=== PATIENT | male | born 1980 | race Hispanic/Latino ===

== ENCOUNTER 2018-03-13 10:00 | Emergency (ER) | payer OTHER ==
[2018-03-13 12:27] LABS: Urine Bacteria NONE SEEN /HPF (NONE SEEN); Urine Culture Reflex Order NOT NEEDED; Urine RBC <5 /HPF (NONE SEEN)
[2018-03-13 12:28] LABS: Urine Blood TRACE (NEG); Urine Glucose NEGATIVE (NEG); Urine Protein NEGATIVE (NEG)
--- NOTE | 2018-03-13 12:53 | ER ---
Nurse's Notes [facility] Name: Bradley Steve Age: 37 yrs Sex: Male : 1980 Arrival Date: 03/13/2018 Time: 10:03 Bed 20 Private MD: None, None Diagnosis: Epididymitis-Left Presentation: 03/13 10:11 Presenting complaint: Patient states: "I run a lot, I went to the gym, I was running hb pretty hard on the treadmill. Now my left testicle is bigger than its ever been and everything feels tight, numb, and somewhat heavy" Reports symptoms have been going on for the past 2 days. Transition of care: patient was not received from another setting of care. Onset of symptoms was March 11, 2018. Risk Assessment: Do you want to hurt yourself or someone else? Patient reports no desire to harm self or others. Initial Sepsis Screen: Does the patient meet any 2 criteria? No. Patient's initial sepsis screen is negative. Does the patient have a suspected source of infection? No. Patient's initial sepsis screen is negative. Care prior to arrival: None. 10:11 Method Of Arrival: Ambulatory hb 10:11 Acuity: ERICKA 2 hb Triage Assessment: 10:13 General: Appears in no apparent distress. comfortable, Behavior is calm, cooperative, hb appropriate for age. Pain: Complains of pain in pelvis. Pain: Pain currently is 2 out of 10 on a pain scale. Neuro: Level of Consciousness is awake, alert, obeys commands. Cardiovascular: Patient's skin is warm and dry. Respiratory: Airway is patent Respiratory effort is even, unlabored, Respiratory pattern is regular, symmetrical. Historical: - Allergies: 10:13 No Known Allergies; hb - Home Meds: 10:13 None [Active]; hb - PMHx: 10:13 None; hb - PSHx: 10:13 Appendectomy; hb - Immunization history:: Flu vaccine is not up to date. - Social history:: Smoking status: Patient/guardian denies using tobacco. - Ebola Screening: : Patient denies travel to an Ebola-affected area in the 21 days before illness onset. Screenin:50 Abuse screen: Denies threats or abuse. Nutritional screening: No deficits noted. em Tuberculosis screening: No symptoms or risk factors identified. Fall Risk None identified. Assessment: 11:50 General: Appears in no apparent distress. comfortable, Behavior is calm, cooperative. em Pain: Complains of pain in pelvis Quality of pain is described as tight and pressure. Neuro: Level of Consciousness is awake, alert, obeys commands, Oriented to person, place, time, situation, Gait is steady. Cardiovascular: Capillary refill < 3 seconds Patient's skin is warm and dry. Respiratory: Airway is patent Respiratory effort is even, unlabored, Respiratory pattern is regular, symmetrical. GI: Abdomen is flat, Patient currently denies nausea, vomiting. : Urine is clear, Genitalia appear normal on penis on scrotum Reports left testicle feels tight and feels like pressure, denies pain. EENT: No signs and/or symptoms were reported regarding the EENT system. Derm: Skin is intact, is healthy with good turgor, Skin is pink, warm \\T\\ dry. Musculoskeletal: Range of motion: intact in all extremities. 12:00 Reassessment: I agree with previous assessment. hb 13:08 Reassessment: Patient appears in no apparent distress at this time. Patient and/or em family updated on plan of care and expected duration. Pain level reassessed. Patient is alert, oriented x 3, equal unlabored respirations, skin warm/dry/pink. Vital Signs: 10:13 BP 150 / 98; Pulse 66; Resp 18; Temp 98.1; Pulse Ox 98% on R/A; Weight 102.06 kg (R); hb Height 5 ft. 7 in. (170.18 cm) (R); Pain 2/10; 13:09 BP 147 / 87; Pulse 71; Resp 19; Pulse Ox 99% on R/A; Pain 0/10; em 10:13 Body Mass Index 35.24 (102.06 kg, 170.18 cm) hb ED Course: 10:03 Patient arrived in ED. sb2 10:04 None, None is Private Physician. sb2 10:12 Triage completed. hb 10:13 Arm band placed on Patient placed in waiting room, Patient notified of wait time. hb 11:37 Ultrasound completed. Other: pt ambulated to /from u/s room to er waiting , no issues . sg3 . 11:41 Krish Almanzar PA is PHCP. cp 11:41 Krish Rios MD is Attending Physician. cp 11:43 Jayson Contreras LVN is Primary Nurse. em 11:50 Patient has correct armband on for positive identification. Placed in gown. Bed in low em position. Call light in reach. 12:06 US Scrotum Testicles In Process Unspecified. EDMS 12:51 Jason Hurst MD is Referral Physician. cp 13:48 No provider procedures requiring assistance completed. Patient did not have IV access em during this emergency room visit. 14:28 Scrotum Testicles In Process Unspecified. EDMS Administered Medications: 13:08 Drug: Rocephin (cefTRIAXone) 250 mg Route: IM; Site: left deltoid; em 13:48 Follow up: Response: No adverse reaction em 13:08 Drug: Zithromax 1 grams Route: PO; em 13:48 Follow up: Response: No adverse reaction em Outcome: 12:52 Discharge ordered by MD. cp 13:48 Discharged to home ambulatory. em 13:48 Condition: good 13:48 Discharge instructions given to patient, Instructed on discharge instructions, follow up and referral plans. medication usage, Demonstrated understanding of instructions, follow-up care, medications, Prescriptions given X 2. 13:49 Patient left the ED. em Signatures: Dispatcher [employer] EDMS Jayson Contreras LVN LVN em Krish Almanzar PA PA cp Maday Hampton, JOSHUA RN Karen Ramirez sg3 Judit Coleman sb2
--- NOTE | 2018-03-13 12:53 | EDPHYS ---
Physician Documentation [facility] Name: Bradley Steve Age: 37 yrs Sex: Male : 1980 Arrival Date: 03/13/2018 Time: 10:03 Bed 20 Private MD: None, None ED Physician Krish Rios HPI: 03/13 11:45 This 37 yrs old Male presents to ER via Ambulatory with complaints of cp Testicular Problem. 11:45 The patient presents with swelling, of the left testicle. cp 11:45 Onset: The symptoms/episode began/occurred 2 day(s) ago. cp 11:45 Associated signs and symptoms: Pertinent positives: tightness and numbness of left cp testicle, Pertinent negatives: abdominal pain, diarrhea, dysuria, fever, vomiting. Severity of symptoms: in the emergency department the symptoms are unchanged. Historical: - Allergies: 10:13 No Known Allergies; hb - Home Meds: 10:13 None [Active]; hb - PMHx: 10:13 None; hb - PSHx: 10:13 Appendectomy; hb - Immunization history:: Flu vaccine is not up to date. - Social history:: Smoking status: Patient/guardian denies using tobacco. - Ebola Screening: : Patient denies travel to an Ebola-affected area in the 21 days before illness onset. ROS: 12:00 Constitutional: Negative for body aches, chills, fever, poor PO intake. cp 12:00 Eyes: Negative for injury, pain, redness, and discharge. cp 12:00 Cardiovascular: Negative for chest pain, edema, palpitations. 12:00 Respiratory: Negative for cough, shortness of breath, wheezing. 12:00 Abdomen/GI: Negative for abdominal pain, nausea, vomiting, and diarrhea, constipation, anorexia, black/tarry stool, rectal bleeding. 12:00 Back: Negative for pain at rest, pain with movement. 12:00 : Positive for left testicular swelling, Negative for urinary symptoms, flank pain. 12:00 Skin: Negative for cellulitis, rash. 12:00 Neuro: Positive for numbness, left testicle, Negative for headache, weakness. 12:00 All other systems are negative. Exam: 12:05 Constitutional: The patient appears in no acute distress, alert, awake, comfortable, cp non-toxic, well developed, well nourished. 12:05 Head/Face: Normocephalic, atraumatic. cp 12:05 Eyes: Periorbital structures: appear normal, Conjunctiva: normal, no exudate, no injection, Sclera: no appreciated abnormality, Lids and lashes: appear normal, bilaterally. 12:05 ENT: External ear(s): are unremarkable, Nose: is normal, Mouth: is normal, Posterior pharynx: is normal, airway is patent. 12:05 Chest/axilla: Inspection: normal. 12:05 Cardiovascular: Rate: normal. 12:05 Respiratory: the patient does not display signs of respiratory distress, Respirations: normal. 12:05 Abdomen/GI: Inspection: abdomen appears normal, Palpation: abdomen is soft and non-tender, in all quadrants, voluntary guarding, is not appreciated, involuntary guarding, is not appreciated, Hernia: not appreciated. 12:05 : Male external genitalia: swelling: of the left testicle is noted, of the epididymis area, that is mild, tenderness, is not appreciated. 12:05 Skin: cellulitis, is not appreciated, no rash present. Vital Signs: 10:13 BP 150 / 98; Pulse 66; Resp 18; Temp 98.1; Pulse Ox 98% on R/A; Weight 102.06 kg (R); hb Height 5 ft. 7 in. (170.18 cm) (R); Pain 2/10; 13:09 BP 147 / 87; Pulse 71; Resp 19; Pulse Ox 99% on R/A; Pain 0/10; em 10:13 Body Mass Index 35.24 (102.06 kg, 170.18 cm) hb MDM: 11:41 Patient medically screened. cp 12:00 Differential diagnosis: UTI, prostatitis, urethritis, epididymitis, orchitis. cp 12:50 Data reviewed: vital signs, nurses notes, lab test result(s), radiologic studies, cp ultrasound. 12:50 Counseling: I had a detailed discussion with the patient and/or guardian regarding: the cp historical points, exam findings, and any diagnostic results supporting the discharge/admit diagnosis, lab results, radiology results, to return to the emergency department if symptoms worsen or persist or if there are any questions or concerns that arise at home. 03/13 11:47 Order name: Urine Microscopic Only; Complete Time: 12:31 cp 03/13 12:15 Order name: Urine Dipstick--Ancillary (enter results); Complete Time: 12:31 hb 03/13 12:31 Interpretation: Normal except: UBLD TRACE. cp 03/13 12:43 Order name: Scrotum Testicles; Complete Time: 12:17 EDTN 03/13 11:47 Order name: Urine Dipstick-Ancillary (obtain specimen); Complete Time: 12:10 cp Administered Medications: 13:08 Drug: Rocephin (cefTRIAXone) 250 mg Route: IM; Site: left deltoid; em 13:48 Follow up: Response: No adverse reaction em 13:08 Drug: Zithromax 1 grams Route: PO; em 13:48 Follow up: Response: No adverse reaction em Disposition: 03/14 07:42 Co-signature as Attending Physician, Krish Rios MD I agree with the assessment and neeraj plan of care. Disposition: 03/13/18 12:52 Discharged to Home. Impression: Epididymitis - Left. - Condition is Stable. - Discharge Instructions: Epididymitis, Testicular Self-Exam. - Prescriptions for Anaprox DS 550 mg Oral Tablet - take 1 tablet by ORAL route every 12 hours As needed; 20 tablet. Doxycycline Monohydrate 100 mg Oral Tablet - take 1 tablet by ORAL route every 12 hours for 10 days; 20 tablet. - Medication Reconciliation Form, Thank You Letter, Antibiotic Education, Prescription Opioid Use form. - Follow up: Jason Hurst MD; When: 1 week; Reason: symptoms continue. - Problem is new. - Symptoms have improved. Signatures: Dispatcher [employer] EDTN Krish Rios MD MD cha Munoz, Edgar, ENGAGEMENT LIAISON ENGAGEMENT LIAISON em Krish Almanzar PA PA cp Maday Hampton, RN RN Corrections: (The following items were deleted from the chart) 03/13 13:49 12:52 03/13/2018 12:52 Discharged to Home. Impression: Epididymitis - Left. Condition em is Stable. Forms are Medication Reconciliation Form, Thank You Letter, Antibiotic Education, Prescription Opioid Use. Follow up: Jason Hurst; When: 1 week; Reason: symptoms continue. Problem is new. Symptoms have improved. cp 03/14 12:08 07:30 This 37 yrs old Male presents to ER via Ambulatory with complaints of cp Testicular Problem. cp
[2018-03-13] MEDS ORDERED: LIDOCAINE 1% MPF 2 ML AMPULE ONE (13:09)
[2018-03-13] MEDS ORDERED: AZITHROMYCIN 250 MG TAB ONE (13:09)
[2018-03-13] MEDS ORDERED: CEFTRIAXONE 250 MG/VIAL ONE (13:09)
[2018-03-13 16:45] VITALS: BP 150/98; TEMP 98.1; O2SAT 98
--- NOTE | 2018-03-13 19:33 | RAD REPORT ---
EXAM DESCRIPTION: US - Scrotum Testicles - 03/13/2018 2:28 pm CLINICAL HISTORY: Testicular pain, scrotal swelling Preliminary findings were provided at the time of the study. Final report was delayed due to technica l failure in transmission of images COMPARISON: None. FINDINGS: No epididymal enlargement or hyperemia. Small incidental epididymal cyst noted. No intrate sticular mass lesion. Doppler evaluation shows a normal intratesticular blood flow pattern. Minimal b ilateral hydroceles are present. No abnormal vasculature or inguinal bowel hernia. IMPRESSION: No testicle or epididymis significant finding.
== END 2018-03-13 13:49 | disposition home or self-care (01) ==
LOC: ER 10:00
DX: N45.1 Epididymitis (principal)
CPT/HCPCS: 76870; 81003; 81015; 96372; 99283; J0696; J2001

== ENCOUNTER 2018-09-06 16:31 | Emergency (ER) | payer OTHER ==
[2018-09-06] MEDS ORDERED: IBUPROFEN 400 MG TAB ONE (17:06)
[2018-09-06] MEDS ORDERED: IBUPROFEN 200 MG TAB PO ONE (17:06)
--- NOTE | 2018-09-06 17:36 | EDPHYS ---
Physician Documentation [facility] Name: Bradley Steve Age: 38 yrs Sex: Male : 1980 Arrival Date: 09/06/2018 Time: 16:34 Bed 10 Private MD: ED Physician Krish Rios HPI: 09/06 17:44 This 38 yrs old Male presents to ER via Ambulatory with complaints of Body kb Aches, Sore Throat. 17:46 The patient presents with sore throat. The patient describes throat pain as constant. kb Onset: The symptoms/episode began/occurred yesterday. Severity of symptoms: At their worst the symptoms were moderate, in the emergency department the symptoms are unchanged. Modifying factors: The symptoms are alleviated by nothing, the symptoms are aggravated by swallowing, Patient's oral intake status: limited food intake, Denies contact with similarly ill indivduals. Associated signs and symptoms: Pertinent positives: fever, flu-like symptoms, malaise, Sore throat. The patient has not experienced similar symptoms in the past. The patient has not recently seen a physician. Historical: - Allergies: 16:36 No Known Allergies; hb - Home Meds: 16:36 None [Active]; hb - PMHx: 16:36 None; hb - PSHx: 16:36 Appendectomy; hb - Immunization history:: Adult Immunizations up to date. - Social history:: Smoking status: Patient/guardian denies using tobacco. - Ebola Screening: : No symptoms or risks identified at this time. ROS: 17:46 Cardiovascular: Negative for chest pain, palpitations, and edema, Respiratory: Negative kb for shortness of breath, cough, wheezing, and pleuritic chest pain, Abdomen/GI: Negative for abdominal pain, nausea, vomiting, diarrhea, and constipation, MS/Extremity: Negative for injury and deformity, Skin: Negative for injury, rash, and discoloration, Neuro: Negative for headache, weakness, numbness, tingling, and seizure. 17:46 Constitutional: Positive for body aches, chills, fatigue, fever, malaise. 17:46 ENT: Positive for sore throat. Exam: 17:46 Constitutional: This is a well developed, well nourished patient who is awake, alert, kb and in no acute distress. Head/Face: Normocephalic, atraumatic. Chest/axilla: Normal chest wall appearance and motion. Nontender with no deformity. No lesions are appreciated. Cardiovascular: Regular rate and rhythm with a normal S1 and S2. No gallops, murmurs, or rubs. Normal PMI, no JVD. No pulse deficits. Respiratory: Lungs have equal breath sounds bilaterally, clear to auscultation and percussion. No rales, rhonchi or wheezes noted. No increased work of breathing, no retractions or nasal flaring. Abdomen/GI: Soft, non-tender, with normal bowel sounds. No distension or tympany. No guarding or rebound. No evidence of tenderness throughout. Skin: Warm, dry with normal turgor. Normal color with no rashes, no lesions, and no evidence of cellulitis. MS/ Extremity: Pulses equal, no cyanosis. Neurovascular intact. Full, normal range of motion. Neuro: Awake and alert, GCS 15, oriented to person, place, time, and situation. Cranial nerves II-XII grossly intact. Motor strength 5/5 in all extremities. Sensory grossly intact. Cerebellar exam normal. Normal gait. 17:46 ENT: External ear(s): are unremarkable, Ear canal(s): are normal, TM's: are normal, Nose: is normal, Mouth: is normal, Posterior pharynx: Airway: normal, no evidence of obstruction, Tonsils: bilaterally enlarged, with erythema, with exudate, Uvula: normal, midline, swelling, that is moderate, erythema, that is moderate, exudate, that is moderate. Vital Signs: 16:36 BP 145 / 83; Pulse 94; Resp 16; Temp 101.6(TE); Pulse Ox 97% on R/A; Weight 102.06 kg; hb Height 5 ft. 7 in. (170.18 cm); Pain 7/10; 17:00 Temp 101.2(O); rv 17:48 Temp 101(O); rv 17:49 BP 131 / 86; Pulse 96; Resp 18; Temp 101; Pulse Ox 98% ; rv 16:36 Body Mass Index 35.24 (102.06 kg, 170.18 cm) hb MDM: 16:45 Patient medically screened. kb 17:49 Data reviewed: vital signs, nurses notes. Data interpreted: Pulse oximetry: on room air kb is 97 %. Interpretation: normal. 17:50 Counseling: I had a detailed discussion with the patient and/or guardian regarding: the kb historical points, exam findings, and any diagnostic results supporting the discharge/admit diagnosis, lab results, the need for outpatient follow up, a family practitioner, to return to the emergency department if symptoms worsen or persist or if there are any questions or concerns that arise at home. 09/06 16:40 Order name: Flu; Complete Time: 17:34 kb 09/06 16:40 Order name: Strep; Complete Time: 17:34 kb Administered Medications: 16:55 Drug: Ibuprofen 600 mg Route: PO; rv 17:48 Follow up: Temp 101 Oral; Response: Temperature is decreased rv 17:45 Drug: Augmentin 875 mg Route: PO; rv 17:48 Follow up: Response: Medication administered at discharge. rv Disposition: 09/07 07:11 Co-signature as Attending Physician, Krish Rios MD I agree with the assessment and neeraj plan of care. Disposition: 09/06/18 17:35 Discharged to Home. Impression: Streptococcal pharyngitis. - Condition is Stable. - Discharge Instructions: Strep Throat, [id number]-Lypq. - Prescriptions for Augmentin 875- 125 mg Oral Tablet - take 1 tablet by ORAL route every 12 hours for 10 days; 20 tablet. - Medication Reconciliation Form, Thank You Letter, Antibiotic Education, Prescription Opioid Use, Work release form form. - Follow up: Emergency Department; When: As needed; Reason: Worsening of condition. Follow up: Private Physician; When: 2 - 3 days; Reason: Recheck today's complaints, Continuance of care, Re-evaluation by your physician. Signatures: Dispatcher [employer] EDMO Emily Ng, Krish Adorno MD MD cha Baxter, Heather, JOSHUA RN Gamal Drew, JOSHUA RN rv Corrections: (The following items were deleted from the chart) 09/06 17:50 17:35 09/06/2018 17:35 Discharged to Home. Impression: Streptococcal pharyngitis. rv Condition is Stable. Forms are Medication Reconciliation Form, Thank You Letter, Antibiotic Education, Prescription Opioid Use. Follow up: Emergency Department; When: As needed; Reason: Worsening of condition. Follow up: Private Physician; When: 2 - 3 days; Reason: Recheck today's complaints, Continuance of care, Re-evaluation by your physician. kb
--- NOTE | 2018-09-06 17:36 | ER ---
Nurse's Notes [facility] Name: Bradley Steve Age: 38 yrs Sex: Male : 1980 Arrival Date: 09/06/2018 Time: 16:34 Bed 10 Private MD: Diagnosis: Streptococcal pharyngitis Presentation: 09/06 16:35 Presenting complaint: Body aches, headache, sore throat, and subjective fever x 2 days. hb Denies cough/N/V/D. Transition of care: patient was not received from another setting of care. Onset of symptoms was September 05, 2018. Risk Assessment: Do you want to hurt yourself or someone else? Patient reports no desire to harm self or others. Initial Sepsis Screen: Does the patient meet any 2 criteria? No. Patient's initial sepsis screen is negative. Does the patient have a suspected source of infection? No. Patient's initial sepsis screen is negative. Care prior to arrival: None. 16:35 Method Of Arrival: Ambulatory hb 16:35 Acuity: ERICKA 4 hb Historical: - Allergies: 16:36 No Known Allergies; hb - Home Meds: 16:36 None [Active]; hb - PMHx: 16:36 None; hb - PSHx: 16:36 Appendectomy; hb - Immunization history:: Adult Immunizations up to date. - Social history:: Smoking status: Patient/guardian denies using tobacco. - Ebola Screening: : No symptoms or risks identified at this time. Screenin:02 Abuse screen: Denies threats or abuse. Denies injuries from another. Nutritional rv screening: No deficits noted. Tuberculosis screening: No symptoms or risk factors identified. Fall Risk None identified. Assessment: 17:01 General: Appears in no apparent distress. comfortable, Behavior is calm, cooperative. rv Pain: Complains of pain in generalized. Neuro: Level of Consciousness is awake, alert, obeys commands, Oriented to person, place, time, situation. Cardiovascular: Patient's skin is warm and dry. Respiratory: Airway is patent Respiratory effort is even, Breath sounds are clear bilaterally. GI: No signs and/or symptoms were reported involving the gastrointestinal system. : No signs and/or symptoms were reported regarding the genitourinary system. EENT: Throat is reddened has enlarged tonsils on left with gag reflex present. Derm: Skin is intact. Musculoskeletal: No signs and/or symptoms reported regarding the musculoskeletal system. Vital Signs: 16:36 BP 145 / 83; Pulse 94; Resp 16; Temp 101.6(TE); Pulse Ox 97% on R/A; Weight 102.06 kg; hb Height 5 ft. 7 in. (170.18 cm); Pain 7/10; 17:00 Temp 101.2(O); rv 17:48 Temp 101(O); rv 17:49 BP 131 / 86; Pulse 96; Resp 18; Temp 101; Pulse Ox 98% ; rv 16:36 Body Mass Index 35.24 (102.06 kg, 170.18 cm) hb ED Course: 16:34 Patient arrived in ED. rg4 16:36 Triage completed. hb 16:36 Arm band placed on right wrist. hb 16:40 Emily Ng FNP-C is [facility]. kb 16:40 Krish Rios MD is Attending Physician. kb 16:47 Gamal Islas RN is Primary Nurse. rv 17:02 Patient has correct armband on for positive identification. Bed in low position. Call rv light in reach. Pulse ox on. NIBP on. 17:49 No provider procedures requiring assistance completed. Patient did not have IV access rv during this emergency room visit. Administered Medications: 16:55 Drug: Ibuprofen 600 mg Route: PO; rv 17:48 Follow up: Temp 101 Oral; Response: Temperature is decreased rv 17:45 Drug: Augmentin 875 mg Route: PO; rv 17:48 Follow up: Response: Medication administered at discharge. rv Outcome: 17:35 Discharge ordered by . kb 17:49 Discharged to home ambulatory. rv 17:49 Condition: good 17:49 Discharge instructions given to patient, Instructed on discharge instructions, follow up and referral plans. medication usage, Demonstrated understanding of instructions, follow-up care, medications, Prescriptions given X 1. 17:50 Patient left the ED. rv Signatures: Emily Ng FNP-C FNP-Ckb Baxter, Heather RN RN Zara Chance rg4 Gamal Islas RN RN rv
[2018-09-06] MEDS ORDERED: AMOX/K CLAV 875 MG TAB ONE (17:55)
[2018-09-06 23:23] VITALS: TEMP 101
[2018-09-06 23:24] VITALS: BP 131/86; O2SAT 98
== END 2018-09-06 17:50 | disposition home or self-care (01) ==
LOC: ER 16:31
DX: J02.0 Streptococcal pharyngitis (principal)
CPT/HCPCS: 87081; 87804; 99283

== ENCOUNTER 2019-05-24 21:26 | Emergency (ER) | payer OTHER ==
[2019-05-24] MEDS ORDERED: IBUPROFEN 200 MG TAB PO ONE ×2 (21:56→22:02)
--- NOTE | 2019-05-24 22:37 | ER ---
Nurse's Notes [facility] Name: Bradley Steve Age: 38 yrs Sex: Male : 1980 Arrival Date: 05/24/2019 Time: 21:27 Bed 28 Private MD: Diagnosis: Streptococcal pharyngitis Presentation: 05/24 21:44 Presenting complaint: Patient states: sore throat since this morning, pain when ch swallowing, body aches. Transition of care: patient was not received from another setting of care. Onset of symptoms was May 24, 2019 at 07:00. Risk Assessment: Do you want to hurt yourself or someone else? Patient reports no desire to harm self or others. Initial Sepsis Screen: Does the patient meet any 2 criteria? No. Patient's initial sepsis screen is negative. Does the patient have a suspected source of infection? No. Patient's initial sepsis screen is negative. Care prior to arrival: Medication(s) given: Tylenol, theriflu. 21:44 Method Of Arrival: Ambulatory 21:44 Acuity: ERICKA 4 ch Triage Assessment: 21:46 General: Appears in no apparent distress. comfortable, Behavior is calm, cooperative, ch appropriate for age. Pain: Complains of pain in throat Pain currently is 8 out of 10 on a pain scale. EENT: Oral mucosa is moist. Good dentition noted. Throat is reddened has enlarged tonsils bilaterally with gag reflex present, pt reports pain to R ear. Neuro: No deficits noted. Respiratory: Airway is patent Respiratory effort is even, unlabored, Breath sounds are clear bilaterally. GI: No signs and/or symptoms were reported involving the gastrointestinal system. Derm: Skin is pink, warm \T\ dry. Historical: - Allergies: 21:46 No Known Allergies; - Home Meds: 21:46 None [Active]; ch - PMHx: 21:46 None; ch - PSHx: 21:46 None; ch - Immunization history:: Adult Immunizations up to date, Flu vaccine is not up to date. - Coronavirus screen:: The patient has NOT traveled to [place] in the past 14 days. The patient has NOT had contact with known/suspected case of Coronavirus?. - Social history:: Smoking status: Patient denies any tobacco usage or history of. Patient uses alcohol, but reports only rare drinking. Patient/guardian denies using street drugs. - Ebola Screening: : Patient negative for fever greater than or equal to 101.5 degrees Fahrenheit, and additional compatible Ebola Virus Disease symptoms Patient denies exposure to infectious person Patient denies travel to an Ebola-affected area in the 21 days before illness onset No symptoms or risks identified at this time. Screenin:03 Abuse screen: Denies threats or abuse. Denies injuries from another. Nutritional ch screening: No deficits noted. Tuberculosis screening: No symptoms or risk factors identified. Fall Risk None identified. Assessment: 22:03 General: Appears in no apparent distress. comfortable, Behavior is calm, cooperative, ch appropriate for age. Neuro: No deficits noted. Cardiovascular: No deficits noted. Respiratory: Airway is patent Respiratory effort is even, unlabored, Respiratory pattern is regular, Breath sounds are clear bilaterally. Derm: Skin is pink, warm \T\ dry. Vital Signs: 21:46 BP 129 / 89; Pulse 84; Resp 14; Temp 100.8; Pulse Ox 99% on R/A; Weight 97.52 kg; Height 5 ft. 7 in. (170.18 cm); Pain 8/10; 22:56 BP 115 / 77; Pulse 68; Resp 16; Temp 97.7(O); Pulse Ox 99% ; lt1 21:46 Body Mass Index 33.67 (97.52 kg, 170.18 cm) ED Course: 21:27 Patient arrived in ED. ag3 21:32 Krish Almanzar PA is PHCP. cp 21:32 Geo Walker MD is Attending Physician. cp 21:42 Analia Toussaint, JOSHUA is Primary Nurse. 21:45 Triage completed. 21:46 Arm band placed on left wrist. Patient placed in an exam room, on a stretcher. 22:03 Patient has correct armband on for positive identification. Bed in low position. Call light in reach. Side rails up X 1. Adult w/ patient. Pulse ox on. NIBP on. Door closed. Noise minimized. PO fluids given. Verbal reassurance given. 22:03 No provider procedures requiring assistance completed. Flu and/or RSV swab sent to lab. Strep swab sent to lab. Patient did not have IV access during this emergency room visit. Administered Medications: 22:05 Drug: Ibuprofen 800 mg Route: PO; 05/25 00:18 Follow up: Response: Pain is decreased Outcome: 05/24 22:36 Discharge ordered by . hannah 23:15 Patient left the ED. lt1 Signatures: Analia Toussaint RN RN Krish Ponce PA PA cp Gomez, Alice 3 Klaudia Roa lt1
--- NOTE | 2019-05-24 22:38 | EDPHYS ---
Physician Documentation [facility] Name: Bradley Steve Age: 38 yrs Sex: Male : 1980 Arrival Date: 05/24/2019 Time: 21:27 Bed 28 Private MD: ED Physician Geo Walker HPI: 05/24 21:50 This 38 yrs old Male presents to ER via Ambulatory with complaints of Sore cp Throat. 21:50 The patient presents with sore throat. cp 21:50 Onset: The symptoms/episode began/occurred this morning. Associated signs and symptoms: cp Pertinent positives: fever, body aches, Pertinent negatives cough, diarrhea, dysphagia, headache, vomiting. Historical: - Allergies: 21:46 No Known Allergies; ch - Home Meds: 21:46 None [Active]; ch - PMHx: 21:46 None; ch - PSHx: 21:46 None; ch - Immunization history:: Adult Immunizations up to date, Flu vaccine is not up to date. - Coronavirus screen:: The patient has NOT traveled to [place] in the past 14 days. The patient has NOT had contact with known/suspected case of Coronavirus?. - Social history:: Smoking status: Patient denies any tobacco usage or history of. Patient uses alcohol, but reports only rare drinking. Patient/guardian denies using street drugs. - Ebola Screening: : Patient negative for fever greater than or equal to 101.5 degrees Fahrenheit, and additional compatible Ebola Virus Disease symptoms Patient denies exposure to infectious person Patient denies travel to an Ebola-affected area in the 21 days before illness onset No symptoms or risks identified at this time. ROS: 21:55 Constitutional: Positive for body aches, fever. cp 21:55 Eyes: Negative for injury, pain, redness, and discharge. cp 21:55 ENT: Positive for ear pain, sore throat, Negative for drainage from ear(s), difficulty swallowing, difficulty handling secretions. 21:55 Respiratory: Negative for cough, shortness of breath, wheezing. 21:55 Abdomen/GI: Negative for abdominal pain, nausea, vomiting, and diarrhea. 21:55 Skin: Negative for rash. 21:55 Neuro: Negative for altered mental status, headache. 21:55 All other systems are negative. Exam: 22:05 Constitutional: The patient appears in no acute distress, alert, awake, non-toxic, well cp developed, well nourished, febrile. 22:05 Head/Face: Normocephalic, atraumatic. cp 22:05 Eyes: Periorbital structures: appear normal, Conjunctiva: normal, no exudate, no injection, Lids and lashes: appear normal, bilaterally. 22:05 ENT: External ear(s): are unremarkable, Ear canal(s): are normal, clear, TM's: dullness, bilaterally, Nose: is normal, Mouth: Lips: moist, Oral mucosa: pink and intact, moist, Posterior pharynx: Airway: no evidence of obstruction, patent, Tonsils: enlarged on the left, with erythema, no exudate, Uvula: midline, erythema, that is moderate, exudate, is not appreciated. 22:05 Neck: ROM/movement: is normal, is supple, no meningismus, no nuchal rigidity. 22:05 Chest/axilla: Inspection: normal. 22:05 Cardiovascular: Rate: normal. 22:05 Respiratory: the patient does not display signs of respiratory distress, Respirations: normal. 22:05 Abdomen/GI: Exam negative for discomfort, distension, guarding, Inspection: abdomen cp appears normal. 22:05 Skin: no rash present. 22:05 Neuro: Orientation: to person, place \T\ time. Mentation: is normal, Motor: moves all fours, strength is normal. Vital Signs: 21:46 BP 129 / 89; Pulse 84; Resp 14; Temp 100.8; Pulse Ox 99% on R/A; Weight 97.52 kg; ch Height 5 ft. 7 in. (170.18 cm); Pain 8/10; 22:56 BP 115 / 77; Pulse 68; Resp 16; Temp 97.7(O); Pulse Ox 99% ; lt1 21:46 Body Mass Index 33.67 (97.52 kg, 170.18 cm) ch MDM: 21:39 Patient medically screened. cp 22:00 Differential diagnosis: epiglottitis, group A strep tonsillitis, laryngitis, cp peritonsillar abscess pharyngitis, retropharyngeal abcess tonsillitis, uvulitis, influenza. 22:35 Data reviewed: vital signs, nurses notes, lab test result(s), and as a result, I will cp discharge patient. Counseling: I had a detailed discussion with the patient and/or guardian regarding: the historical points, exam findings, and any diagnostic results supporting the discharge/admit diagnosis, lab results, to return to the emergency department if symptoms worsen or persist or if there are any questions or concerns that arise at home. Response to treatment: the patient's symptoms have mildly improved after treatment, and as a result, I will discharge patient. 05/24 21:42 Order name: Flu 05/24 21:42 Order name: Strep 05/24 22:24 Order name: Influenza Screen (A ; Complete Time: 22:29 EDVT 05/24 22:24 Order name: Group A Streptococcus Rapid Sc; Complete Time: 22:29 EDVT 05/24 22:29 Interpretation: Abnormal: GP A STREP SC \T\nbsp; GROUP A STREP SCREEN-- \T\nbsp; \T\nbsp; cp POSITIVE. Administered Medications: 22:05 Drug: Ibuprofen 800 mg Route: PO; 05/25 00:18 Follow up: Response: Pain is decreased Disposition: 00:24 Co-signature as Attending Physician, Geo Walker MD. rn Disposition: 05/24/19 22:36 Discharged to Home. Impression: Streptococcal pharyngitis. - Condition is Stable. - Discharge Instructions: Strep Throat. - Prescriptions for Amoxicillin 875 mg Oral Tablet - take 1 tablet by ORAL route every 12 hours for 10 days; 20 tablet. Ibuprofen 800 mg Oral Tablet - take 1 tablet by ORAL route every 8 hours As needed take with food; 30 tablet. - Medication Reconciliation Form, Thank You Letter, Antibiotic Education, Prescription Opioid Use form. - Follow up: Private Physician; When: 1 - 2 days; Reason: Worsening of condition. - Problem is new. - Symptoms have improved. Signatures: [facility] Analia Toussaint RN RN Geo Walker MD MD rn Page, Corey, PA PA cp Tran, Leah lt1 Corrections: (The following items were deleted from the chart) 05/24 23:15 22:36 05/24/2019 22:36 Discharged to Home. Impression: Streptococcal pharyngitis. lt1 Condition is Stable. Forms are Medication Reconciliation Form, Thank You Letter, Antibiotic Education, Prescription Opioid Use. Follow up: Private Physician; When: 1 - 2 days; Reason: Worsening of condition. Problem is new. Symptoms have improved. cp
[2019-05-26 04:10] VITALS: O2SAT 99
[2019-05-26 04:13] VITALS: BP 115/77; TEMP 97.7
== END 2019-05-24 23:15 | disposition home or self-care (01) ==
LOC: ER 21:26
DX: J02.0 Streptococcal pharyngitis (principal)
CPT/HCPCS: 87081; 87804; 99283

== ENCOUNTER 2021-08-10 18:07 | Emergency (ER) | payer OTHER ==
--- OUTSIDE RECORDS SUMMARY | 2021-08-10 18:09 | XMS REPORT | Continuity of Care Document ---
:1980 Author Organization [facility] t Address [address] [place] [address] Care Team Providers Name Role Phone PCP, PATIENT DOES NOT HAVE A Primary Care Physician Unavaila moe GALEAS Attending Clinician Unavailable Only, Db Test Attending Clinician Unavailable Faye AC Attending Clinician Payers Payer Name Policy Type Policy Number Effective Date Expiration Date Dina olsen [facility] [id number] 2018 PREFERRED GENERIC 00:00:00 Problems This patient has no known problems. Allergies, Adverse Reactions, Alerts Allergy Allergy Status Severity Reaction(s) Onset Inactive Treating Comm ents Source Name Type Date Date Clinician NO KNOWN Drug Active [facility] Social History Social Habit Start Date Stop Date Quantity Comments Source Exposure to Yes [facility] SARS-CoV[facility]2 [facility] Sex Ass[facility] At [birth year] [facility] 00:00:00 00:00:00 [facility] Smoking Status Start Date Stop Date Source Unknown if ever smoked [facility] Medications Ordered Filled Start Stop Current Ordering Indication Dosage Frequency Signature Comments Components Source Medication Medication Date Date Medication? Clinician (SIG) Name Name No known 2020-04 No [facility] medications 2- ity of 18:25: [place] [facility] Procedures This patient has no known procedures. Encounters Start End Encounter Admission Attending Care Care Encounter Source Date/Time Date/Time Type Type Clinicians Facility Department ID 2021-03-30 2021-03-30 Outpatient Romi GALEAS LASHIRA [facility] [id number] [facility] 18:15:00 18:44:45 [facility] 2021-03-30 2021-03-30 Laboratory Only, Ang Db Test [facility] 1.2.8 [id number] [facility] 18:15:00 18:30:00 Only [facility] [id number] ity of [place] [id number] Rob as MICHAEL?BLEA [id number] [address] MEDICAL OFFICE BUILDING Results This patient has no known results.
[2021-08-10 19:05] LABS: Absolute Lymphocytes (CBC) 2.3 K/uL (0.7-4.9); Hematocrit 42.1 % (39.6-49.0); Lymphocytes % 31.8 % (15.3-44.8); MPV 7.1 fL (7.6-11.3); RBC Red Blood Cell Count 5.06 M/uL (4.33-5.43)
[2021-08-10 19:08] LABS: Protime INR 1.08
[2021-08-10 19:21] LABS: ALT/SGPT 37 U/L (12-78); AST/SGOT 31 U/L (15-37); Albumin 3.6 g/dL (3.4-5.0); Alkaline Phosphatase 78 U/L (45-117); BUN Blood Urea Nitrogen 11 mg/dL (7-18); Bicarbonate 28 mmol/L (21-32); Bilirubin Direct 0.1 mg/dL (0-0.2); Bilirubin Total 0.5 mg/dL (0.2-1.0); Glucose Level 107 mg/dL (74-106); Magnesium 1.7 mg/dL (1.8-2.4); NT PRO-BNP 39 pg/mL (<125); Potassium 3.5 mmol/L (3.5-5.1); Protein, Total 6.9 g/dL (6.4-8.2); Sodium Level 141 mmol/L (136-145); Troponin High Sensitivity 5.7 pg/mL (<58.9)
--- NOTE | 2021-08-10 20:14 | ER ---
Nurse's Notes [facility] Name: Bradley Steve Age: 40 yrs Sex: Male : 1980 Arrival Date: 08/10/2021 Time: 18:08 Bed 16 Private MD: Diagnosis: Chest pain, unspecified Presentation: 08/10 18:14 Chief complaint: Patient states: a few days ago had a weird sharp pain in left side of iw chest and it happened again today , lasted a few seconds and went away , was sharp pain. Coronavirus screen: At this time, the client does not indicate any symptoms associated with coronavirus-19. Ebola Screen: Patient negative for fever greater than or equal to 101.5 degrees Fahrenheit, and additional compatible Ebola Virus Disease symptoms Patient denies exposure to infectious person. Patient denies travel to an Ebola-affected area in the 21 days before illness onset. No symptoms or risks identified at this time. Initial Sepsis Screen: Does the patient meet any 2 criteria? No. Patient's initial sepsis screen is negative. Does the patient have a suspected source of infection? No. Patient's initial sepsis screen is negative. Risk Assessment: Do you want to hurt yourself or someone else? Patient reports no desire to harm self or others. Onset of symptoms was August 10, 2021. 18:14 Method Of Arrival: Ambulatory iw 18:14 Acuity: ERICKA 3 iw Triage Assessment: 19:26 General: Appears. ke1 19:26 General: Behavior is appropriate for age. Pain: Denies pain. Cardiovascular: Heart ke1 tones S1 S2. Historical: - Allergies: 18:16 No Known Allergies; iw - Home Meds: 18:16 None [Active]; iw - PMHx: 18:16 None; iw - PSHx: 18:16 Appendectomy; iw - Immunization history:: Client reports receiving the 2nd dose of the Covid vaccine. - Social history:: Smoking status: Patient denies any tobacco usage or history of. Screenin:25 Abuse screen: Denies threats or abuse. Nutritional screening: No deficits noted. ke1 Tuberculosis screening: No symptoms or risk factors identified. Fall Risk No fall in past 12 months (0 pts). No secondary diagnosis (0 pts). No IV (0 pts). Ambulatory Aid- None/Bed Rest/Nurse Assist (0 pts). Gait- Normal/Bed Rest/Wheelchair (0 pts) Mental Status- Oriented to own ability (0 pts). Total Galan Fall Scale indicates No Risk (0-24 pts). Assessment: 19:21 Reassessment: Patient appears in no apparent distress at this time. Patient is alert, ke1 oriented x 3, equal unlabored respirations, skin warm/dry/pink. Pain: Denies pain. Vital Signs: 18:14 BP 143 / 96; Pulse 68; Resp 16; Pulse Ox 99% on R/A; Weight 92.99 kg; Height 5 ft. 7 iw in. (170.18 cm); Pain 0/10; 19:24 BP 133 / 78; Pulse 68; Resp 18; Pulse Ox 100% on R/A; ke1 18:14 Body Mass Index 32.11 (92.99 kg, 170.18 cm) ED Course: 18:08 Patient arrived in ED. as 18:16 Triage completed. iw 18:16 Arm band placed on. iw 18:18 Sumeet Wilson PA is PHCP. [facility] 18:18 Jude Littlejohn MD is Attending Physician. [facility] 19:20 Rodger Caballero, JOSHUA is Primary Nurse. ke1 19:26 No provider procedures requiring assistance completed. Patient maintains SpO2 ke1 saturation greater than 95% on room air. 19:27 Bed in low position. Call light in reach. ke1 20:03 XRAY Chest (1 view) In Process Unspecified. EDMS 20:13 Alex Medina MD is Referral Physician. [facility] Administered Medications: No medications were administered Outcome: 20:13 Discharge ordered by . [facility] 20:26 Patient left the ED. kj1 Signatures: Dispatcher [employer] EDMS Sumeet Wilson PA PA jmm Martinez, Amelia as Williams, Irene, RN RN iw Samantha Ng kj1 Rodger Caballero RN RN ke1
--- NOTE | 2021-08-10 20:14 | EDPHYS ---
Physician Documentation [facility] Name: Brdaley Steve Age: 40 yrs Sex: Male : 1980 Arrival Date: 08/10/2021 Time: 18:08 Bed 16 Private MD: ED Physician Jude Littlejohn HPI: 08/10 18:35 This 40 yrs old Male presents to ER via Ambulatory with complaints of Chest jmm Pain. 18:35 The patient or guardian reports chest pain that is located primarily in the anterior jmm chest wall, left. Onset: acutely, 2 day(s) ago. The pain does not radiate. Associated signs and symptoms: Pertinent negatives: shortness of breath. The chest pain is described as sharp. Duration: The patient or guardian reports multiple episodes. Modifying factors: The symptoms are alleviated by nothing. the symptoms are aggravated by nothing. The patient has not experienced similar symptoms in the past. This is a 40 year old male with no chronic medical conditions that presents to the ED with complaints of sharp left sided chest pain which lasted for a few seconds. Denies shortness of breath. Similar episode occurred 2 days ago. Denies shortness of breath. Denies fever. . Historical: - Allergies: 18:16 No Known Allergies; iw - Home Meds: 18:16 None [Active]; iw - PMHx: 18:16 None; iw - PSHx: 18:16 Appendectomy; iw - Immunization history:: Client reports receiving the 2nd dose of the Covid vaccine. - Social history:: Smoking status: Patient denies any tobacco usage or history of. ROS: 18:35 Constitutional: Negative for fever, chills, and weight loss, Respiratory: Negative for jmm shortness of breath, cough, wheezing, and pleuritic chest pain. 18:35 Cardiovascular: Positive for chest pain. 18:35 All other systems are negative. Exam: 18:35 Constitutional: This is a well developed, well nourished patient who is awake, alert, jmm and in no acute distress. Head/Face: atraumatic. Eyes: EOMI, no conjunctival erythema appreciated ENT: Moist Mucus Membranes Neck: Trachea midline, Supple Chest/axilla: Normal chest wall appearance and motion. Cardiovascular: Regular rate and rhythm. No edema appreciated Respiratory: Normal respirations, no respiratory distress appreciated Abdomen/GI: Non distended, soft Back: Normal ROM Skin: General appearance color normal MS/ Extremity: Moves all extremities, no obvious deformities appreciated, no edema noted to the lower extremities Neuro: Awake and alert Psych: Behavior is normal, Mood is normal, Patient is cooperative and pleasant Vital Signs: 18:14 BP 143 / 96; Pulse 68; Resp 16; Pulse Ox 99% on R/A; Weight 92.99 kg; Height 5 ft. 7 iw in. (170.18 cm); Pain 0/10; 19:24 BP 133 / 78; Pulse 68; Resp 18; Pulse Ox 100% on R/A; ke1 18:14 Body Mass Index 32.11 (92.99 kg, 170.18 cm) iw MDM: 18:40 Patient medically screened. [facility] 20:12 Data reviewed: vital signs, nurses notes. Counseling: I had a detailed discussion with jmjeanna the patient and/or guardian regarding: the historical points, exam findings, and any diagnostic results supporting the discharge/admit diagnosis, lab results, the need for outpatient follow up, to return to the emergency department if symptoms worsen or persist or if there are any questions or concerns that arise at home. 21:38 The patient was not given aspirin in the Emergency Department. ED course: I do not jmm suspect acs, pe, pneumothorax, chf, pneumonia. Patient advised to follow upw with pcp and otherwise given strict return precautions. patient understood and agrees with the plan of care. . 08/10 18:35 Order name: Basic Metabolic Panel; Complete Time: 19:29 [facility] 08/10 18:35 Order name: CBC with Diff; Complete Time: 19:29 [facility] 08/10 18:35 Order name: LFT's; Complete Time: 19:29 [facility] 08/10 18:35 Order name: Magnesium; Complete Time: 19:29 [facility] 08/10 18:35 Order name: NT PRO-BNP; Complete Time: 19:29 [facility] 08/10 18:35 Order name: PT-INR; Complete Time: 19:29 [facility] 08/10 18:35 Order name: Troponin HS; Complete Time: 19:29 [facility] 08/10 18:35 Order name: XRAY Chest (1 view) [facility] 08/10 18:35 Order name: EKG; Complete Time: 18:37 [facility] 08/10 18:35 Order name: Cardiac monitoring; Complete Time: 19: [facility] 08/10 18:35 Order name: EKG - Nurse/Tech; Complete Time: : [facility] 08/10 18:35 Order name: IV Saline Lock; Complete Time: : [facility] 08/10 18:35 Order name: Labs collected and sent; Complete Time: 19: [facility] 08/10 18:35 Order name: O2 Per Protocol; Complete Time: : [facility] 08/10 18:35 Order name: O2 Sat Monitoring; Complete Time: 19: [facility] Administered Medications: No medications were administered Disposition Summary: 08/10/21 20:13 Discharge Ordered Location: Home [facility] Condition: Stable [facility] Diagnosis - Chest pain, unspecified [facility] Followup: [facility] - With: Alex Medina MD - When: 2 - 3 days - Reason: Recheck today's complaints, Continuance of care, Re-evaluation by your physician Discharge Instructions: - Discharge Summary Sheet [facility] - Nonspecific Chest Pain, Adult [facility] Forms: - Medication Reconciliation Form [facility] - Thank You Letter [facility] - Antibiotic Education [facility] - Prescription Opioid Use [facility] Signatures: Dispatcher [employer] EDSumeet Man PA PA jmm Williams, Irene, RN RN iw
--- NOTE | 2021-08-10 20:42 | RAD REPORT ---
EXAM DESCRIPTION: RAD - Chest Single View - 08/10/2021 8:01 pm CLINICAL HISTORY: CHEST PAIN Chest pain. COMPARISON: CHEST PA AND LAT 2 VIEW dated 10/29/2010 FINDINGS: Portable technique limits examination quality. The lungs are grossly clear. The heart is normal in size. No displaced fractures. IMPRESSION: No acute intrathoracic process suspected.
[2021-08-10 20:55] VITALS: BP 133/78; O2SAT 100
== END 2021-08-10 20:26 | disposition home or self-care (01) ==
LOC: ER 18:07
DX: R07.9 Chest pain, unspecified (principal)
CPT/HCPCS: 36415; 71045; 80048; 80076; 83735; 83880; 84484; 85025; 85610; 93005; 99284

== ENCOUNTER 2021-08-11 12:29 | Emergency (ER) | payer OTHER ==
--- OUTSIDE RECORDS SUMMARY | 2021-08-11 12:30 | XMS REPORT | Continuity of Care Document ---
:1980 Author Organization [facility] t Address [address] [place] [address] Care Team Providers Name Role Phone PCP, PATIENT DOES NOT HAVE A Primary Care Physician Sarah Betha moe GALEAS Attending Clinician Unavailable Only, Db Test Attending Clinician Unavailable Faye AC Attending Clinician Payers Payer Name Policy Type Policy Number Effective Date Expiration Date Dina olsen [facility] [id number] 2018 PREFERRED GENERIC 00:00:00 Problems This patient has no known problems. Allergies, Adverse Reactions, Alerts Allergy Allergy Status Severity Reaction(s) Onset Inactive Treating Comm ents Source Name Type Date Date Clinician NO KNOWN Drug Active [facility] Social History Social Habit Start Date Stop Date Quantity Comments Source Exposure to Yes [facility] Sex Assigned At [birth year] [facility] 00:00:00 00:00:00 [facility] Smoking Status Start Date Stop Date Source Unknown if ever smoked [facility] Medications Ordered Filled Start Stop Current Ordering Indication Dosage Frequency Signature Comments Components Source Medication Medication Date Date Medication? Clinician (SIG) Name Name No known 2020-04 No [facility] medications 2- ity of 18:25: [place] 24 [facility] Branch Procedures This patient has no known procedures. Encounters Start End Encounter Admission Attending Care Care Encounter Source Date/Time Date/Time Type Type Clinicians Facility Department ID 2021-03-30 2021-03-30 Outpatient Romi GALEAS OHSHIRA [facility] [id number] Univers 18:15:00 18:44:45 CHERRY [facility] 2021-03-30 2021-03-30 Laboratory Only, Ang Db Test [facility] 1.2.8 40.114 [id number] [facility] 18:15:00 18:30:00 Only [facility] Cherry [facility] [id number] ity of [place] [id number] Rob as MICHAEL?BLEA [phone] [address] MEDICAL OFFICE BUILDING Results This patient has no known results.
--- NOTE | 2021-08-11 14:27 | RAD REPORT ---
EXAM DESCRIPTION: RAD - Foot Right 3 View - 08/11/2021 2:09 pm CLINICAL HISTORY: heel pain COMPARISON: No comparisons FINDINGS: No fracture, dislocation or periosteal reaction. Very minimal joint space narrowing at fir st MTP joint. No MTP or high PD joint space spurring or erosive change. No plantar or Achilles spur. No air or foreign body in the soft tissues. IMPRESSION: Negative right foot examination. No plantar spur identified.
--- NOTE | 2021-08-11 14:32 | EDPHYS ---
Physician Documentation [facility] Name: Bradley Steve Age: 40 yrs Sex: Male : 1980 Arrival Date: 08/11/2021 Time: 12:32 Bed 20 Private MD: ED Physician Geo Walker HPI: 08/11 13:25 This 40 yrs old Male presents to ER via Ambulatory with complaints of Foot pm1 Pain. 13:25 The patient presents with pain, that is acute, bruising. The complaints affect the pm1 right heel. Context: The problem was sustained outdoors, resulted from playing football and jumped, landed on his right heel and felt a pop. Patient did not roll his foot or ankle, the patient can fully bear weight, the patient is able to ambulate, Problem is a result from a previous injury: No. Onset: The symptoms/episode began/occurred 2 day(s) ago. Modifying factors: The symptoms are alleviated by nothing. the symptoms are aggravated by weight bearing. Associated signs and symptoms: Pertinent positives: bruising to medial aspect of right heel. Treatment prior to arrival includes: no previous treatment. Severity of symptoms: in the emergency department the symptoms are unchanged. The patient has not experienced similar symptoms in the past. The patient has been recently seen at [facility], yesterday, for unrelated complaints, Patient presented with chest pain, cardiac work up negative and discharged home. Historical: - Allergies: 13:01 No Known Allergies; vg1 - Home Meds: 13:01 None [Active]; vg1 - PMHx: 13:01 None; vg1 - PSHx: 13:01 Appendectomy; vg1 - Immunization history:: Client reports receiving the 2nd dose of the Covid vaccine. - Social history:: Smoking status: Patient denies any tobacco usage or history of. ROS: 13:25 Constitutional: Negative for fever, chills, and weight loss, Cardiovascular: Negative pm1 for chest pain, palpitations, and edema, Respiratory: Negative for shortness of breath, cough, wheezing, and pleuritic chest pain, Abdomen/GI: Negative for abdominal pain, nausea, vomiting, diarrhea, and constipation. 13:25 Neuro: Negative for headache, weakness, numbness, tingling, and seizure. 13:25 MS/extremity: Positive for ecchymosis, pain, of the right heel, Negative for decreased range of motion, deformity. 13:25 Skin: Positive for ecchymosis, of the right heel. 13:25 All other systems are negative. Exam: 13:25 Constitutional: This is a well developed, well nourished patient who is awake, alert, pm1 and in no acute distress. Head/Face: Normocephalic, atraumatic. 13:25 Skin: Warm, dry with normal turgor. Normal color with no rashes, no lesions, and no evidence of cellulitis. 13:25 Cardiovascular: Exam negative for acute changes, Rate: normal, Rhythm: regular, Pulses: no pulse deficits are appreciated. 13:25 Respiratory: Exam negative for acute changes, respiratory distress, shortness of breath. 13:25 Musculoskeletal/extremity: Extremities: grossly normal except: noted in the right heel medial: ecchymosis, tenderness, There is no evidence of decreased ROM, deformity, . 13:25 Neuro: Exam negative for acute changes, Orientation: is normal, Mentation: is normal, Motor: is normal, moves all fours. Vital Signs: 12:59 BP 131 / 81; Pulse 60; Resp 16; Temp 98.0; Pulse Ox 100% ; Weight 92.99 kg; Height 5 vg1 ft. 7 in. (170.18 cm); Pain 2/10; 12:59 Body Mass Index 32.11 (92.99 kg, 170.18 cm) vg1 MDM: 13:03 Patient medically screened. pm1 13:46 Data reviewed: vital signs. Data interpreted: Pulse oximetry: on room air is 100 %. pm1 Interpretation: normal. 14:31 Counseling: I had a detailed discussion with the patient and/or guardian regarding: the pm1 historical points, exam findings, and any diagnostic results supporting the discharge/admit diagnosis, radiology results, the need for outpatient follow up, to return to the emergency department if symptoms worsen or persist or if there are any questions or concerns that arise at home. 14:35 ED course: Patient walking without any difficulty present. pm1 05/02 13:25 Order name: Foot Right 3 View XRAY; Complete Time: 14:31 pm1 Administered Medications: No medications were administered Disposition: 18:49 Co-signature as Attending Physician, Geo Walker MD. rn Disposition Summary: 08/11/21 14:32 Discharge Ordered Location: Home pm1 Problem: new pm1 Symptoms: have improved pm1 Condition: Stable pm1 Diagnosis - Contusion of right foot pm1 Followup: pm1 - With: Emergency Department - When: As needed - Reason: Worsening of condition Followup: pm1 - With: Private Physician - When: 2 - 3 days - Reason: Recheck today's complaints, Continuance of care, Re-evaluation by your physician Discharge Instructions: - Discharge Summary Sheet pm1 - Foot Contusion pm1 Forms: - Medication Reconciliation Form pm1 - Thank You Letter pm1 - Antibiotic Education pm1 - Prescription Opioid Use pm1 Signatures: Dispatcher [employer] EDMS Geo Walker MD MD rn Marinas, Patrick, NP TELETYPESETTER MONITOR pm1 Allyssa Abad, RN RN vg1
--- NOTE | 2021-08-11 14:32 | ER ---
Nurse's Notes [facility] Name: Bradley Steve Age: 40 yrs Sex: Male : 1980 Arrival Date: 08/11/2021 Time: 12:32 Bed 20 Private MD: Diagnosis: Contusion of right foot Presentation: 08/11 12:59 Chief complaint: Patient states: Right foot pain since WednesdayAugust 09; stated "I was vg1 playing flag football and landed on my heel and felt a pop" states heel feels stiff. Coronavirus screen: Vaccine status: Patient reports receiving the 2nd dose of the covid vaccine. Client denies travel out of the [place] in the last 14 days. Ebola Screen: Patient denies exposure to infectious person. Patient denies travel to an Ebola-affected area in the 21 days before illness onset. Initial Sepsis Screen: Does the patient meet any 2 criteria? No. Patient's initial sepsis screen is negative. Does the patient have a suspected source of infection? No. Patient's initial sepsis screen is negative. Risk Assessment: Do you want to hurt yourself or someone else? Patient reports no desire to harm self or others. Onset of symptoms was August 09, 2021. 12:59 Method Of Arrival: Ambulatory vg1 12:59 Acuity: ERICKA 4 vg1 Triage Assessment: 13:01 General: Appears uncomfortable, Behavior is calm, cooperative. Pain: Complains of pain vg1 in right foot. Musculoskeletal: Circulation, motion, and sensation intact. Historical: - Allergies: 13:01 No Known Allergies; vg1 - Home Meds: 13:01 None [Active]; vg1 - PMHx: 13:01 None; vg1 - PSHx: 13:01 Appendectomy; vg1 - Immunization history:: Client reports receiving the 2nd dose of the Covid vaccine. - Social history:: Smoking status: Patient denies any tobacco usage or history of. Screenin:16 Abuse screen: Denies threats or abuse. Nutritional screening: No deficits noted. ll1 Tuberculosis screening: No symptoms or risk factors identified. Fall Risk Gait- Weak (10 pts.). Total Galan Fall Scale indicates No Risk (0-24 pts). Assessment: 13:16 Reassessment: No changes from previously documented assessment. Patient and/or family ll1 updated on plan of care and expected duration. Pain level reassessed. Patient is alert, oriented x 3, equal unlabored respirations, skin warm/dry/pink. 14:15 Reassessment: No changes from previously documented assessment. Patient and/or family ll1 updated on plan of care and expected duration. Pain level reassessed. Patient is alert, oriented x 3, equal unlabored respirations, skin warm/dry/pink. states he is ready to go home. Armando Grimes informed. 14:36 Reassessment: No changes from previously documented assessment. Patient and/or family ll1 updated on plan of care and expected duration. Pain level reassessed. Patient is alert, oriented x 3, equal unlabored respirations, skin warm/dry/pink. Vital Signs: 12:59 BP 131 / 81; Pulse 60; Resp 16; Temp 98.0; Pulse Ox 100% ; Weight 92.99 kg; Height 5 vg1 ft. 7 in. (170.18 cm); Pain 2/10; 12:59 Body Mass Index 32.11 (92.99 kg, 170.18 cm) vg1 ED Course: 12:32 Patient arrived in ED. mr 12:43 Willian Grimes, GRAIN BUYER is PHCP. pm1 12:44 Geo Walker MD is Attending Physician. pm1 13:01 Triage completed. vg1 13:01 Arm band placed on. vg1 13:16 Patient placed in an exam room, on a stretcher. ll1 13:16 No provider procedures requiring assistance completed. Patient did not have IV access ll1 during this emergency room visit. 13:17 Patient has correct armband on for positive identification. Bed in low position. Call ll1 light in reach. Cardiac monitoring not applicable on this patient. 13:34 Supa Vo, JOSHUA is Primary Nurse. ll1 14:11 Foot Right 3 View XRAY In Process Unspecified. EDMS Administered Medications: No medications were administered Outcome: 14:32 Discharge ordered by . pm1 14:36 Discharged to home ambulatory. ll1 14:36 Condition: stable 14:36 Discharge instructions given to patient, Instructed on discharge instructions, follow up and referral plans. Demonstrated understanding of instructions, follow-up care. 14:37 Patient left the ED. ll1 Signatures: Dispatcher [employer] EDMO Constance Salamanca mr Willian Grimes, GRAIN BUYER GRAIN BUYER pm1 Allyssa Abad, RN RN vg1 Supa Vo, RN RN ll1
[2021-08-11 15:51] VITALS: BP 131/81; TEMP 98; O2SAT 100
== END 2021-08-11 14:37 | disposition home or self-care (01) ==
LOC: ER 12:29
DX: S90.31XA Contusion of right foot, initial encounter (principal); Y93.61 Activity, american tackle football
CPT/HCPCS: 99283

== ENCOUNTER 2022-10-24 05:32 | Emergency (ER) | payer OTHER ==
--- OUTSIDE RECORDS SUMMARY | 2022-10-24 05:35 | XMS REPORT | Continuity of Care Document ---
:1980 Author Organization [facility] t Address [address] [facility] [address] [place] [address] Care Team Providers Name Role Phone PCP, PATIENT DOES NOT HAVE A Primary Care Physician CHERRY Donaldson Attending Clinician Unavailable Only, Ang Db Test Attending Clinician Unavailable Cherry Mckinney PA-C Attending Clinician Doctor Unassigned, [place] Attending Clinician Unavailable Payers Payer Name Policy Type Policy Number Effective Date Expiration Date Dina olsen [facility] [id number] 2018 PREFERRED GENERIC 00:00:00 Problems This patient has no known problems. Allergies, Adverse Reactions, Alerts Allergy Allergy Status Severity Reaction(s) Onset Inactive Treating Comm ents Source Name Type Date Date Clinician NO KNOWN Drug Active [facility] ALLERGIE Class [facility] Social History Social Habit Start Date Stop Date Quantity Comments Source Exposure to Yes [facility] SARS-CoV-2 (event) Medica l Branch Sex Assigned At [address] [facility] 00:00:00 00:00:00 [facility] Smoking Status Start Date Stop Date Source Unknown if ever smoked [facility] Medications Ordered Filled Start Stop Current Ordering Indication Dosage Frequency Signature Comments Components Source Medication Medication Date Date Medication? Clinician (SIG) Name Name No known 2020-04 No Univers medications - ity of 18:25: [place] 24 [facility] Procedures This patient has no known procedures. Encounters Start End Encounter Admission Attending Care Care Encounter Source Date/Time Date/Time Type Type Clinicians Facility Department ID 2021-03-30 2021-03-30 Outpatient Romi MCKINNEY TNSHIRA [facility] [id number] Univers 18:15:00 18:44:45 CHERRY [facility] 2021-03-30 2021-03-30 Laboratory Only, Ang Db Test [facility] 1.2.8 40.114 [id number] Univers 18:15:00 18:30:00 Only Lily Mckinneycy [facility] [id number] ity of [place] [id number] Rob as MICHAEL?BLEA [phone] [address] MEDICAL OFFICE BUILDING 2021-03-30 2021-03-30 Outpatient R GUDELIA [facility] [id number] Univers 18:15:00 18:15:00 CHERRY ity [facility] 2021-03-30 2021-03-30 Letter Doctor LESVIA [id number] Univers 00:00:00 00:00:00 (Out) Unassigned, [place] [id number] [place] [facility] [id number] Rob as [phone] [address] 2021-03-30 2021-03-30 Letter Doctor LAKHANI [id number] Univers 00:00:00 00:00:00 (Out) Unassigned, [place] [id number] [place] [facility] [id number] Rob as [phone] [facility] [address] [place] 2021-03-30 2021-03-30 Letter Doctor LAKHANI [id number] Univers 00:00:00 00:00:00 (Out) Unassigned, [place] [id number] [place] [facility] [id number] Rob as [phone] [facility] [address] [place] 2021-03-30 2021-03-30 Orders Doctor LESVIA [id number] Univers 00:00:00 00:00:00 Only Unassigned, [place]AN[place] [id number] [place] [facility] [id number] Rob as [phone] [facility] [address] [place] 2021-03-30 2021-03-30 Letter Doctor LAKHANI [id number] Univers 00:00:00 00:00:00 (Out) Unassigned, BLANCA [id number] ity of [place] [facility] [id number] Rob as [phone] [facility] 044 Branch Results This patient has no known results.
[2022-10-24] MEDS ORDERED: KETOROLAC 30 MG/ML INJ ONE (06:08)
[2022-10-24] MEDS ORDERED: LIDOCAINE 4% PATCH ONE (06:08)
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
[2022-10-24 07:17] VITALS: BP 123/92; TEMP 98.1; O2SAT 100
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
== END 2022-10-24 07:13 | disposition home or self-care (01) ==
LOC: ER 05:32
DX: S20.211A Contusion of right front wall of thorax, initial encounter (principal); V89.2XXA Person injured in unspecified motor-vehicle accident, traffic, initial encounter
CPT/HCPCS: 71100; 96372; 99284; J2001

== ENCOUNTER 2024-06-17 12:23 | Emergency (ER) | payer BC ==
[2024-06-17] MEDS ORDERED: BUPIVACAINE 0.5% PF 10 ML VIAL ONE (14:09)
[2024-06-17] MEDS ORDERED: LIDOCAINE 1% MPF 5 ML VIAL ONE (14:09)
--- NOTE | 2024-06-17 14:47 | ER ---
Nurse's Notes [facility] Name: Bardley Steve Age: 43 yrs Sex: Male : 1980 Arrival Date: 06/17/2024 Time: 12:23 Bed 10 Private MD: Diagnosis: Cutaneous abscess of right upper limb-right fourth finger paronychia Presentation: 06/17 12:49 Chief complaint: Patient states: 4th finger on right hand has an infection around iw fingernail, was seen at urgent care on Wednesday , they poked it with a needle but nothing came out , has been on antibiotics. Coronavirus screen: At this time, the client does not indicate any symptoms associated with coronavirus-19. Ebola Screen: No symptoms or risks identified at this time. Initial Sepsis Screen: Does the patient meet any 2 criteria? No. Patient's initial sepsis screen is negative. Does the patient have a suspected source of infection? No. Patient's initial sepsis screen is negative. Risk Assessment: Do you want to hurt yourself or someone else? Patient reports no desire to harm self or others. 12:49 Method Of Arrival: Ambulatory iw 12:49 Acuity: ERICKA 4 iw Historical: - Allergies: 12:51 No Known Allergies; iw - Home Meds: 12:51 None [Active]; iw - PMHx: 12:51 None; iw - PSHx: 12:51 Appendectomy; iw - Immunization history:: Last tetanus immunization: up to date. - Infectious Disease History:: Denies. - Social history:: Smoking status: . Screenin:18 [facility] ED Fall Risk Assessment (Adult) History of falling in the last 3 months, hb including since admission No falls in past 3 months (0 pts) Confusion or Disorientation No (0 pts) Intoxicated or Sedated No (0 pts) Impaired Gait No (0 pts) Mobility Assist Device Used No (0 pt) Altered Elimination No (0 pt) Score/Fall Risk Level 0 - 2 = Low Risk Oriented to surroundings, Maintained a safe environment, Educated pt \T\ family on fall prevention, incl call for assistance when getting out of bed. Abuse screen: Denies threats or abuse. Denies injuries from another. Nutritional screening: No deficits noted. Tuberculosis screening: No symptoms or risk factors identified. Assessment: 14:18 General: Appears in no apparent distress. uncomfortable, Behavior is calm, cooperative. hb Pain: Pain currently is 9 out of 10 on a pain scale. Neuro: Level of Consciousness is awake, alert, obeys commands, Oriented to person, place, time, situation. Cardiovascular: Patient's skin is warm and dry. Respiratory: Respiratory effort is even, unlabored, Respiratory pattern is regular, symmetrical. Musculoskeletal: swelling noted to right 4th finger. Vital Signs: 12:49 BP 129 / 80; Pulse 66; Resp 16; Temp 97.6; Pulse Ox 100% on R/A; Weight 90.72 kg; iw Height 5 ft. 8 in. ; Pain 9/10; 12:49 Body Mass Index 30.41 (90.72 kg, 172.72 cm) iw 12:49 Pain Scale: Adult iw ED Course: 12:26 Patient arrived in ED. mr 12:36 Krish Almanzar PA is PHCP. cp 12:36 Krish Rios MD is Attending Physician. cp 12:51 Triage completed. iw 12:51 Arm band placed on. iw 14:06 Maday Hampton, JOSHUA is Primary Nurse. hb 14:18 Patient has correct armband on for positive identification. Bed in low position. Call hb light in reach. Provided Education on: use of call light. 14:18 No provider procedures requiring assistance completed. Patient did not have IV access hb during this emergency room visit. Administered Medications: 14:27 Drug: Lidocaine Infiltration (1 %) 5 ml 5 ml Infiltration once; to bedside Volume: 5 hb ml; Route: Infiltration; 14:27 Drug: Bupivacaine Infiltration (0.5 %) 10 ml 10 ml Infiltration once Volume: 10 ml; hb Route: Infiltration; Medication: 14:18 VIS not applicable for this client. hb Outcome: 14:46 Discharge ordered by MD. cp 14:59 Discharged to home ambulatory, hb 14:59 Condition: stable 14:59 Discharge instructions given to patient, Instructed on discharge instructions, follow up and referral plans. medication usage, Demonstrated understanding of instructions, follow-up care, medications, Prescriptions given X 1, 14:59 Patient left the ED. hb Signatures: Constance Salamanca, Reg Reg mr Samia Lopez RN RN Krish Almanzar PA PA cp Baxter, Heather, RN RN hb Corrections: (The following items were deleted from the chart) 12:52 12:51 Immunization history: Adult Immunizations not up to date, iw iw
--- NOTE | 2024-06-17 14:47 | EDPHYS ---
Physician Documentation [facility] Name: Bradley Steve Age: 43 yrs Sex: Male : 1980 Arrival Date: 06/17/2024 Time: 12:23 Bed 10 Private MD: ED Physician Krish Rios HPI: 06/17 13:15 This 43 yrs old Male presents to ER via Ambulatory with complaints of Infected cp finger. 13:15 The patient or guardian reports pain, swelling, tenderness. The complaints affect the cp right fourth finger. Onset: The symptoms/episode began/occurred this past week with patient reporting being seen at urgent care and prescribed oral antibiotics for infection. 13:15 Associated signs and symptoms: The patient has no apparent associated signs or symptoms.cp Historical: - Allergies: 12:51 No Known Allergies; iw - Home Meds: 12:51 None [Active]; iw - PMHx: 12:51 None; iw - PSHx: 12:51 Appendectomy; iw - Immunization history:: Last tetanus immunization: up to date. - Infectious Disease History:: Denies. - Social history:: Smoking status: . ROS: 13:20 MS/extremity: Positive for erythema, pain, swelling, tenderness, of the right fourth cp finger, Negative for paresthesias, injury, 13:20 Constitutional: Negative for body aches, chills, fever, poor PO intake, cp 13:20 All other systems are negative, Exam: 13:25 Constitutional: The patient appears in no acute distress, alert, awake, well developed, cp well nourished, 13:25 Head/Face: Normocephalic, atraumatic. cp 13:25 Cardiovascular: Rate: normal, 13:25 Respiratory: the patient does not display signs of respiratory distress, Respirations: normal, no use of accessory muscles, no retractions, 13:25 Musculoskeletal/extremity: Extremities: noted in the right fourth finger: swelling, small abscess noted radial side of nail with erythema extending to proximal nail. nail intact and nailbed appears pink, Vital Signs: 12:49 BP 129 / 80; Pulse 66; Resp 16; Temp 97.6; Pulse Ox 100% on R/A; Weight 90.72 kg; iw Height 5 ft. 8 in. ; Pain 9/10; 12:49 Body Mass Index 30.41 (90.72 kg, 172.72 cm) iw 12:49 Pain Scale: Adult iw Procedures: 14:45 I \T\ D: Incision and drainage was performed for an abscess of the radial side of nail cp right fourth finger Prepped with Betadine, Anesthetized with digital block with 6 ccs 1% lidocaine w/o epi and 0.5 marcaine w/o epi. Incised with #11 blade. Drained moderate amount purulent fluid. bloody fluid. Dressing: sterile 4x4 gauze, the patient tolerated the procedure well. MDM: 12:50 Medical Screening Exam initiated neeraj 14:00 Differential diagnosis: closed fracture, felon, abscess, cellulitis. cp 14:46 Data reviewed: vital signs, nurses notes, and as a result, I will discharge patient. cp 14:46 I considered the following discharge prescriptions or medication management in the emergency department Medications were administered in the Emergency Department. See MAR. Counseling: I had a detailed discussion with the patient and/or guardian regarding the historical points, exam findings, and any diagnostic results supporting the discharge/admit diagnosis, to return to the emergency department if symptoms worsen or persist or if there are any questions or concerns that arise at home. Response to treatment: the patient's symptoms have markedly improved after treatment, and as a result, I will discharge patient. 06/17 13:13 Order name: I\T\D Setup; Complete Time: 14:07 cp Administered Medications: 14:27 Drug: Lidocaine Infiltration (1 %) 5 ml 5 ml Infiltration once; to bedside Volume: 5 hb ml; Route: Infiltration; 14:27 Drug: Bupivacaine Infiltration (0.5 %) 10 ml 10 ml Infiltration once Volume: 10 ml; hb Route: Infiltration; Disposition: 06/18 14:49 Chart complete. cp Disposition Summary: 06/17/24 14:46 Discharge Ordered Notes: Location: Home cp Problem: new cp Symptoms: have improved cp Condition: Stable cp Diagnosis - Cutaneous abscess of right upper limb - right fourth finger paronychia cp Followup: cp - With: Private Physician - When: 2 - 3 days - Reason: Worsening of condition Discharge Instructions: - Discharge Summary Sheet cp - Paronychia cp Forms: - Medication Reconciliation Form cp - Antibiotic Education cp - Prescription Opioid Use cp - Patient Portal Instructions cp - Leadership Thank You Letter cp Prescriptions: - Bactrim DS 800-160 mg Oral Tablet - take 1 tablet ORAL route every 12 hours for 10 days; 20 tablet; Refills: 0, cp Product Selection Permitted Signatures: Krish Rios MD MD cha Williams, Irene RN RN Krish Almanzar PA PA cp Baxter, Heather, RN RN Corrections: (The following items were deleted from the chart) 06/17 12:52 12:51 Immunization history: Adult Immunizations not up to date, [facility] 06/18 14:47 06/17 14:30 I \T\ D: Incision and drainage was performed for an abscess of the radial cp side of nail right fourth finger Prepped with Betadine, Anesthetized with digital block with 6 ccs 1% lidocaine w/o epi and 0.5 marcaine w/o epi. Incised with #11 blade. Drained moderate amount purulent fluid. bloody fluid. Dressing: sterile 4x4 gauze, the patient tolerated the procedure well, cp
[2024-06-17 15:07] VITALS: BP 129/80; TEMP 97.6; O2SAT 100
== END 2024-06-17 14:59 | disposition home or self-care (01) ==
LOC: ER 12:23
PROC: 0H9FXZZ Drainage of Right Hand Skin, External Approach (ICD-10-PCS; principal; 2024-06-17)
DX: L03.011 Cellulitis of right finger (principal)
CPT/HCPCS: 99283; 10060; J2003